=== PATIENT | male | born 1940 | race Caucasian/White ===

== ENCOUNTER 2017-08-13 09:54 | Inpatient (IN) | payer OTHER, MEDICAID ==
[2017-08-13] MEDS: SOD CHLORIDE 0.9% 500 ML IV (10:30)
[2017-08-13] MEDS: PANTOPRAZOLE IV 80 MG in SOD CHLORIDE 0.9% 100 ML IVPB (10:45)
[2017-08-13] MEDS: PANTOPRAZOLE IV 80 MG in SOD CHLORIDE 0.9% 100 ML IV (10:45)
[2017-08-13 10:57] LABS: ADD MAN DIFF? NO
[2017-08-13 11:00] LABS: BASOPHILS % 0.1 % (0.0-2.0); EOSINOPHILS % 0.1 % (0.0-7.0); HEMATOCRIT 41.1 % (42.0-52.0); LYMPHOCYTES # 1.4 10^3/ul (0.8-2.9); LYMPHOCYTES % 8.3 % (15.0-51.0); MEAN CORPUSCULAR HEMOGLOBIN 29.8 pg (29.0-33.0); MEAN CORPUSCULAR HGB CONC 34.1 g/dl (32.0-37.0); MEAN CORPUSCULAR VOLUME 87.4 fl (82.0-101.0); MEAN PLATELET VOLUME 9.6 fl (7.4-10.4); MONOCYTE # 0.7 10^3/ul (0.3-0.9); MONOCYTES % 3.8 % (0.0-11.0); NEUTROPHIL # 14.8 10^3/ul (1.6-7.5); NEUTROPHILS % 87.2 % (39.0-77.0); PLATELET COUNT 243 10^3/UL (140-415); RED CELL DISTRIBUTION WIDTH 13.1 % (11.5-14.5)
[2017-08-13 11:00] LABS: WHITE BLOOD COUNT 16.9 10^3/ul (4.8-10.8)
[2017-08-13 11:33] LABS: ALANINE AMINOTRANSFERASE 51 IU/L (13-69); ALBUMIN 4.3 g/dl (3.3-4.9); ALBUMIN/GLOBULIN RATIO 1.26; ALKALINE PHOSPHATASE 90 IU/L (42-121); ANION GAP 17 (8-16); ASPARTATE AMINO TRANSFERASE 24 IU/L (15-46); BILIRUBIN,INDIRECT 0.5 mg/dl (0-1.1); BILIRUBIN,TOTAL 0.5 mg/dl (0.2-1.3); BLOOD UREA NITROGEN 25 mg/dl (7-20); CALCIUM 9.8 mg/dl (8.4-10.2); CARBON DIOXIDE 30 mmol/L (21-31); CHLORIDE 105 mmol/L (97-110); CREATININE 0.72 mg/dl (0.61-1.24); GLUCOSE 171 mg/dl (70-220); INR 1.01; POTASSIUM 3.8 mmol/L (3.5-5.1); PROTIME 13.4 Sec (11.9-14.9); SODIUM 148 mmol/L (135-144); TOTAL PROTEIN 7.7 g/dl (6.1-8.1)
[2017-08-13] MEDS ORDERED: SOD CHLORIDE 0.9% 1,000 ML IV (13:29)
[2017-08-13] MEDS ORDERED: ACETAMINOPHEN 325 MG TAB PO (13:30)
[2017-08-13] MEDS ORDERED: ONDANSETRON 4 MG INJ IV ×3 (13:30→19:30)
[2017-08-13] MEDS ORDERED: NACL 0.9% 3 ML SYG IV (14:30)
[2017-08-13] MEDS ORDERED: morphine 2 MG INJ IV (14:30)
[2017-08-13] MEDS ORDERED: METOCLOPRAMIDE 10 MG INJ IV ×2 (14:30→19:30)
[2017-08-13] MEDS: SOD CHLORIDE 0.45% 1,000 ML IV ×2 (15:45→22:19)
[2017-08-13 17:54] LABS: HEMATOCRIT 38.1 % (42.0-52.0); HEMOGLOBIN 12.7 g/dl (14.0-18.0)
[2017-08-13] MEDS: PIPER-TAZO 3.375 GM IV (PMX) 100 ML IVPB ×2 (18:00→23:24)
[2017-08-13 19:11] LABS: ADD UMIC NO; UR ASCORBIC ACID NEGATIVE (NEGATIVE); UR BILIRUBIN (Dip) NEGATIVE (NEGATIVE); UR BLOOD (Dip) NEGATIVE (NEGATIVE); UR CLARITY CLEAR (CLEAR); UR COLOR YELLOW (YELLOW); UR GLUCOSE (Dip) NEGATIVE (NEGATIVE); UR KETONES (Dip) NEGATIVE (NEGATIVE); UR LEUKOCYTE ESTERASE (Dip) NEGATIVE Leu/ul (NEGATIVE); UR NITRITE (Dip) NEGATIVE (NEGATIVE); UR SPECIFIC GRAVITY (Dip) 1.051 (1.003-1.030); UR TOTAL PROTEIN (Dip) NEGATIVE (NEGATIVE); UR UROBILINOGEN (Dip) NEGATIVE (NEGATIVE)
[2017-08-13] MEDS ORDERED: DIPHENHYDRAMINE 50 MG INJ IV (19:30)
[2017-08-13] MEDS ORDERED: FENTAnyl 50 MCG/ML VIAL IV (19:30)
[2017-08-13] MEDS ORDERED: LABETALOL HCL 20MG INJ IV (19:30)
[2017-08-13] MEDS ORDERED: HYDROmorphONE 1 MG/5 ML IV SYRINGE IV (19:46)
[2017-08-13] MEDS: HYDROmorphONE 1 MG/5 ML IV SYRINGE IV (19:49)
[2017-08-13] MEDS: hydrALAzine 20 MG INJ IV (19:55)
[2017-08-13] MEDS: PANTOPRAZOLE 40 MG INJ IV (21:10)
[2017-08-14 05:37] LABS: ADD MAN DIFF? NO
[2017-08-14 05:45] LABS: BASOPHILS % 0.2 % (0.0-2.0); EOSINOPHILS # 0.1 10^3/ul (0.0-0.5); EOSINOPHILS % 1.1 % (0.0-7.0); HEMATOCRIT 37.7 % (42.0-52.0); HEMOGLOBIN 12.6 g/dl (14.0-18.0); LYMPHOCYTES % 14.9 % (15.0-51.0); MEAN CORPUSCULAR HEMOGLOBIN 29.7 pg (29.0-33.0); MEAN CORPUSCULAR HGB CONC 33.4 g/dl (32.0-37.0); MEAN CORPUSCULAR VOLUME 88.9 fl (82.0-101.0); MEAN PLATELET VOLUME 9.7 fl (7.4-10.4); MONOCYTES % 7.3 % (0.0-11.0); PLATELET COUNT 219 10^3/UL (140-415); RED BLOOD COUNT 4.24 10^6/ul (4.70-6.10); RED CELL DISTRIBUTION WIDTH 13.4 % (11.5-14.5)
[2017-08-14 05:45] LABS: WHITE BLOOD COUNT 13.2 10^3/ul (4.8-10.8)
[2017-08-14] MEDS: PIPER-TAZO 3.375 GM IV (PMX) 100 ML IVPB ×3 (05:56→18:45)
[2017-08-14] MEDS: PANTOPRAZOLE 40 MG INJ IV ×2 (05:56→18:44)
[2017-08-14] MEDS: SOD CHLORIDE 0.45% 1,000 ML IV ×3 (05:57→22:19)
[2017-08-14 06:07] LABS: ALANINE AMINOTRANSFERASE 37 IU/L (13-69); ALBUMIN 3.2 g/dl (3.3-4.9); ALBUMIN/GLOBULIN RATIO 1.14; ALKALINE PHOSPHATASE 63 IU/L (42-121); ANION GAP 12 (8-16); ASPARTATE AMINO TRANSFERASE 19 IU/L (15-46); BILIRUBIN,INDIRECT 0.5 mg/dl (0-1.1); BILIRUBIN,TOTAL 0.5 mg/dl (0.2-1.3); BLOOD UREA NITROGEN 24 mg/dl (7-20); CALCIUM 8.5 mg/dl (8.4-10.2); CARBON DIOXIDE 26 mmol/L (21-31); CHLORIDE 112 mmol/L (97-110); CHOL/HDL RATIO 4.1 RATIO; CHOLESTEROL 121 mg/dl (100-200); CREATININE 0.78 mg/dl (0.61-1.24); GLUCOSE 104 mg/dl (70-220); HDL CHOLESTEROL 29 mg/dl (31-75); LDL CHOLESTEROL,CALCULATED 70 mg/dl; MAGNESIUM 1.9 mg/dl (1.7-2.5); PHOSPHORUS 4.3 mg/dl (2.5-4.9); POTASSIUM 3.8 mmol/L (3.5-5.1); SODIUM 146 mmol/L (135-144); TRIGLYCERIDES 109 mg/dl (0-149)
[2017-08-14 07:08] LABS: HEMOGLOBIN A1C 5.9 % (0-5.9)
[2017-08-14] MEDS: BENAZEPRIL 20 MG TAB PO (08:35)
[2017-08-14] MEDS: INDOMETHACIN 50 MG SUPP PR (16:30)
[2017-08-14 18:53] LABS: CARCINOEMBRYONIC ANTIGEN 1.5 ng/ml (0.0-5.0)
[2017-08-14 18:57] LABS: CANCER ANTIGEN 19-9 5.4 U/ml (0.0-37.0)
[2017-08-14 22:54] LABS: LACTIC ACID 1.2 mmol/L (0.5-2.0)
[2017-08-14 23:19] LABS: OCCULT BLOOD STOOL POSITIVE (NEGATIVE)
[2017-08-14 23:42] LABS: HIV 1&2 ANTIBODY NEGATIVE (NEGATIVE)
[2017-08-15] MEDS: PIPER-TAZO 3.375 GM IV (PMX) 100 ML IVPB ×5 (00:54→23:51)
[2017-08-15] MEDS: SOD CHLORIDE 0.45% 1,000 ML IV ×4 (00:55→23:06)
[2017-08-15] MEDS: PANTOPRAZOLE 40 MG INJ IV ×2 (05:41→18:50)
[2017-08-15 05:42] LABS: ADD MAN DIFF? NO; BASOPHILS % 0.3 % (0.0-2.0); EOSINOPHILS # 0.3 10^3/ul (0.0-0.5); HEMATOCRIT 33.5 % (42.0-52.0); HEMOGLOBIN 11.2 g/dl (14.0-18.0); LYMPHOCYTES # 2.2 10^3/ul (0.8-2.9); MEAN CORPUSCULAR HEMOGLOBIN 29.9 pg (29.0-33.0); MEAN CORPUSCULAR HGB CONC 33.4 g/dl (32.0-37.0); MEAN CORPUSCULAR VOLUME 89.3 fl (82.0-101.0); MEAN PLATELET VOLUME 9.6 fl (7.4-10.4); MONOCYTE # 0.7 10^3/ul (0.3-0.9); MONOCYTES % 7.4 % (0.0-11.0); NEUTROPHIL # 5.9 10^3/ul (1.6-7.5); NEUTROPHILS % 65.1 % (39.0-77.0); PLATELET COUNT 188 10^3/UL (140-415); RED BLOOD COUNT 3.75 10^6/ul (4.70-6.10); RED CELL DISTRIBUTION WIDTH 13.3 % (11.5-14.5)
[2017-08-15 05:42] LABS: WHITE BLOOD COUNT 9.1 10^3/ul (4.8-10.8)
[2017-08-15 06:25] LABS: ANION GAP 11 (8-16); BLOOD UREA NITROGEN 16 mg/dl (7-20); CALCIUM 8.2 mg/dl (8.4-10.2); CARBON DIOXIDE 22 mmol/L (21-31); CHLORIDE 112 mmol/L (97-110); CREATININE 0.92 mg/dl (0.61-1.24); GLUCOSE 77 mg/dl (70-220); POTASSIUM 3.7 mmol/L (3.5-5.1); SODIUM 141 mmol/L (135-144)
[2017-08-15] MEDS ORDERED: DEXAMETHASONE 4 MG/ML 1 ML INJ (07:00)
[2017-08-15] MEDS ORDERED: CEFAZOLIN 1 GM INJ (07:00)
[2017-08-15] MEDS ORDERED: ONDANSETRON 4 MG INJ (07:00)
[2017-08-15] MEDS: BENAZEPRIL 20 MG TAB PO ×2 (08:51→11:58)
[2017-08-15] MEDS: INDOMETHACIN 50 MG SUPP PR (09:00)
[2017-08-15] MEDS ORDERED: PROPOFOL 20 ML (09:44)
[2017-08-15] MEDS ORDERED: FENTAnyl 50 MCG/ML VIAL (09:45)
[2017-08-15] MEDS ORDERED: MIDAZOLAM 1 MG/ML 2 ML INJ (09:47)
[2017-08-15] MEDS ORDERED: LIDOCAINE 2% (SDV) 5 ML INJ (10:15)
[2017-08-15] MEDS ORDERED: SUCCINYLCHOLINE CHLORIDE 100 MG/5 ML SYG IV (10:15)
[2017-08-15] MEDS: hydrALAzine 20 MG INJ IV (10:41)
[2017-08-16 05:58] LABS: ADD MAN DIFF? NO
[2017-08-16] MEDS: PANTOPRAZOLE 40 MG INJ IV ×2 (05:58→17:57)
[2017-08-16] MEDS: PIPER-TAZO 3.375 GM IV (PMX) 100 ML IVPB ×4 (05:58→23:53)
[2017-08-16 06:01] LABS: WHITE BLOOD COUNT 9.3 10^3/ul (4.8-10.8)
[2017-08-16 06:01] LABS: BASOPHILS % 0.1 % (0.0-2.0); EOSINOPHILS # 0.1 10^3/ul (0.0-0.5); EOSINOPHILS % 0.8 % (0.0-7.0); HEMATOCRIT 31.8 % (42.0-52.0); HEMOGLOBIN 10.8 g/dl (14.0-18.0); LYMPHOCYTES # 1.8 10^3/ul (0.8-2.9); LYMPHOCYTES % 19.6 % (15.0-51.0); MEAN CORPUSCULAR VOLUME 88.3 fl (82.0-101.0); MEAN PLATELET VOLUME 9.7 fl (7.4-10.4); MONOCYTE # 0.7 10^3/ul (0.3-0.9); MONOCYTES % 7.4 % (0.0-11.0); NEUTROPHIL # 6.7 10^3/ul (1.6-7.5); NEUTROPHILS % 71.7 % (39.0-77.0); PLATELET COUNT 202 10^3/UL (140-415); RED CELL DISTRIBUTION WIDTH 13.2 % (11.5-14.5)
[2017-08-16] MEDS: SOD CHLORIDE 0.45% 1,000 ML IV ×4 (06:19→23:53)
[2017-08-16 06:35] LABS: ANION GAP 5 (8-16); BLOOD UREA NITROGEN 13 mg/dl (7-20); CALCIUM 8.2 mg/dl (8.4-10.2); CARBON DIOXIDE 25 mmol/L (21-31); CHLORIDE 113 mmol/L (97-110); CREATININE 0.82 mg/dl (0.61-1.24); GLUCOSE 88 mg/dl (70-220); POTASSIUM 3.3 mmol/L (3.5-5.1); SODIUM 140 mmol/L (135-144)
[2017-08-16] MEDS ORDERED: ACETAMINOPHEN 1000 MG/100 ML IVPB (07:00)
[2017-08-16] MEDS: BENAZEPRIL 20 MG TAB PO ×2 (09:00→13:10)
[2017-08-16] MEDS ORDERED: ONDANSETRON 4 MG INJ (09:17)
[2017-08-16] MEDS ORDERED: ROCURONIUM 50 MG INJ (09:17)
[2017-08-16] MEDS ORDERED: PROPOFOL 20 ML ×2 (09:17→09:51)
[2017-08-16] MEDS ORDERED: FENTAnyl 50 MCG/ML VIAL (09:17)
[2017-08-16] MEDS ORDERED: METOCLOPRAMIDE 10 MG INJ (09:19)
[2017-08-16] MEDS ORDERED: ROPIVACAINE 0.5 % 30 ML VIAL (09:19)
[2017-08-16] MEDS ORDERED: EPHEDrine SULFATE 50 MG/5 ML SYG (09:28)
[2017-08-16] MEDS ORDERED: HYDROmorphONE 2 MG/ML SYG (09:47)
[2017-08-16] MEDS ORDERED: hydrALAzine 20 MG INJ (09:47)
[2017-08-16] MEDS: BUPIVACAINE 0.25% (MPF) 30 ML INJ (09:55)
[2017-08-16] MEDS: LIDOCAINE 1%/EPI 30 ML INJ (09:55)
[2017-08-16] MEDS ORDERED: DIPHENHYDRAMINE 50 MG INJ IV (10:00)
[2017-08-16] MEDS ORDERED: hydrALAzine 20 MG INJ IV (10:00)
[2017-08-16] MEDS ORDERED: HYDROmorphONE 1 MG/5 ML IV SYRINGE IV ×3 (10:00)
[2017-08-16] MEDS ORDERED: ONDANSETRON 4 MG INJ IV ×2 (10:00→11:00)
[2017-08-16] MEDS ORDERED: LABETALOL HCL 20MG INJ IV (10:00)
[2017-08-16] MEDS ORDERED: NEOSTIGMINE 3 MG/3 ML SYRINGE (10:15)
[2017-08-16] MEDS ORDERED: GLYCOPYRROLATE 0.4 MG INJ (10:15)
[2017-08-16] MEDS: MEPERIDINE 25 MG INJ IV (12:01)
[2017-08-16] MEDS: POTASSIUM CHLORIDE 100 ML IVPB ×2 (13:33→15:47)
[2017-08-16] MEDS: morphine 2 MG INJ IV (15:02)
[2017-08-16] MEDS: OXYCODONE/ACETAMINOPHEN (5/325) TAB PO ×2 (15:52→22:40)
[2017-08-17] MEDS: hydrALAzine 20 MG INJ IV ×3 (01:58→16:15)
[2017-08-17 05:36] LABS: ADD MAN DIFF? NO
[2017-08-17] MEDS: PIPER-TAZO 3.375 GM IV (PMX) 100 ML IVPB ×3 (05:39→18:05)
[2017-08-17] MEDS: PANTOPRAZOLE 40 MG INJ IV ×2 (05:39→18:05)
[2017-08-17] MEDS: OXYCODONE/ACETAMINOPHEN (5/325) TAB PO ×2 (05:39→18:07)
[2017-08-17 05:53] LABS: WHITE BLOOD COUNT 16.9 10^3/ul (4.8-10.8)
[2017-08-17 05:53] LABS: BASOPHILS % 0.1 % (0.0-2.0); EOSINOPHILS % 0.1 % (0.0-7.0); HEMATOCRIT 33.9 % (42.0-52.0); HEMOGLOBIN 11.9 g/dl (14.0-18.0); LYMPHOCYTES # 1.1 10^3/ul (0.8-2.9); LYMPHOCYTES % 6.7 % (15.0-51.0); MEAN CORPUSCULAR HEMOGLOBIN 30.4 pg (29.0-33.0); MEAN CORPUSCULAR HGB CONC 35.1 g/dl (32.0-37.0); MEAN CORPUSCULAR VOLUME 86.5 fl (82.0-101.0); MEAN PLATELET VOLUME 9.6 fl (7.4-10.4); MONOCYTE # 0.6 10^3/ul (0.3-0.9); MONOCYTES % 3.7 % (0.0-11.0); NEUTROPHIL # 15.1 10^3/ul (1.6-7.5); NEUTROPHILS % 88.9 % (39.0-77.0); PLATELET COUNT 210 10^3/UL (140-415); RED BLOOD COUNT 3.92 10^6/ul (4.70-6.10); RED CELL DISTRIBUTION WIDTH 13.4 % (11.5-14.5)
[2017-08-17 06:01] LABS: ANION GAP 7 (8-16); BLOOD UREA NITROGEN 8 mg/dl (7-20); CARBON DIOXIDE 26 mmol/L (21-31); CHLORIDE 106 mmol/L (97-110); CREATININE 0.71 mg/dl (0.61-1.24); GLUCOSE 122 mg/dl (70-220); POTASSIUM 3.5 mmol/L (3.5-5.1); SODIUM 135 mmol/L (135-144)
[2017-08-17] MEDS: BENAZEPRIL 20 MG TAB PO ×2 (10:05→18:32)
[2017-08-17] MEDS: SOD CHLORIDE 0.45% 1,000 ML IV (10:06)
[2017-08-17] MEDS: POTASSIUM CHLORIDE (SR) 20 MEQ TAB PO (10:06)
[2017-08-17 11:59] LABS: ALANINE AMINOTRANSFERASE 49 IU/L (13-69); ALBUMIN 3.3 g/dl (3.3-4.9); ALBUMIN/GLOBULIN RATIO 1.22; ALKALINE PHOSPHATASE 51 IU/L (42-121); ANION GAP 13 (8-16); ASPARTATE AMINO TRANSFERASE 36 IU/L (15-46); BILIRUBIN,INDIRECT 0.4 mg/dl (0-1.1); BILIRUBIN,TOTAL 0.4 mg/dl (0.2-1.3); BLOOD UREA NITROGEN 8 mg/dl (7-20); CALCIUM 8.2 mg/dl (8.4-10.2); CARBON DIOXIDE 23 mmol/L (21-31); CHLORIDE 101 mmol/L (97-110); CREATININE 0.72 mg/dl (0.61-1.24); GLUCOSE 127 mg/dl (70-220); POTASSIUM 3.6 mmol/L (3.5-5.1); SODIUM 133 mmol/L (135-144)
[2017-08-18] MEDS: PIPER-TAZO 3.375 GM IV (PMX) 100 ML IVPB ×4 (00:13→18:03)
[2017-08-18] MEDS: OXYCODONE/ACETAMINOPHEN (5/325) TAB PO ×2 (05:31→13:35)
[2017-08-18] MEDS: PANTOPRAZOLE 40 MG INJ IV ×2 (05:32→18:03)
[2017-08-18 06:18] LABS: ADD MAN DIFF? NO
[2017-08-18 06:27] LABS: BASOPHILS % 0.1 % (0.0-2.0); EOSINOPHILS % 0.1 % (0.0-7.0); HEMOGLOBIN 11.9 g/dl (14.0-18.0); MEAN CORPUSCULAR VOLUME 85.6 fl (82.0-101.0); MEAN PLATELET VOLUME 9.7 fl (7.4-10.4); MONOCYTES % 4.3 % (0.0-11.0); NEUTROPHIL # 18.9 10^3/ul (1.6-7.5); NEUTROPHILS % 85.7 % (39.0-77.0); PLATELET COUNT 219 10^3/UL (140-415); RED BLOOD COUNT 3.97 10^6/ul (4.70-6.10); RED CELL DISTRIBUTION WIDTH 13.2 % (11.5-14.5)
[2017-08-18 06:49] LABS: ALBUMIN 3.1 g/dl (3.3-4.9); ANION GAP 11 (8-16); BLOOD UREA NITROGEN 8 mg/dl (7-20); CALCIUM 8.3 mg/dl (8.4-10.2); CARBON DIOXIDE 23 mmol/L (21-31); CHLORIDE 105 mmol/L (97-110); CREATININE 0.74 mg/dl (0.61-1.24); GLUCOSE 112 mg/dl (70-220); MAGNESIUM 1.7 mg/dl (1.7-2.5); PHOSPHORUS 1.7 mg/dl (2.5-4.9); POTASSIUM 3.5 mmol/L (3.5-5.1); SODIUM 135 mmol/L (135-144)
[2017-08-18] MEDS: BENAZEPRIL 20 MG TAB PO (09:50)
[2017-08-18] MEDS: NEUTRA-PHOS 250 MG PACKET PO (10:23)
[2017-08-18] MEDS: hydrALAzine 20 MG INJ IV (14:36)
[2017-08-19] MEDS: OXYCODONE/ACETAMINOPHEN (5/325) TAB PO ×2 (00:29→08:58)
[2017-08-19] MEDS: PIPER-TAZO 3.375 GM IV (PMX) 100 ML IVPB ×3 (00:29→12:22)
[2017-08-19] MEDS: PANTOPRAZOLE 40 MG INJ IV ×2 (05:39→17:10)
[2017-08-19 06:04] LABS: ADD MAN DIFF? NO
[2017-08-19 06:05] LABS: WHITE BLOOD COUNT 24.4 10^3/ul (4.8-10.8)
[2017-08-19 06:05] LABS: BASOPHILS % 0.1 % (0.0-2.0); EOSINOPHILS # 0.2 10^3/ul (0.0-0.5); EOSINOPHILS % 0.8 % (0.0-7.0); HEMATOCRIT 34.4 % (42.0-52.0); HEMOGLOBIN 11.8 g/dl (14.0-18.0); LYMPHOCYTES # 2.9 10^3/ul (0.8-2.9); LYMPHOCYTES % 11.9 % (15.0-51.0); MEAN CORPUSCULAR HEMOGLOBIN 29.5 pg (29.0-33.0); MEAN CORPUSCULAR HGB CONC 34.3 g/dl (32.0-37.0); MEAN PLATELET VOLUME 9.3 fl (7.4-10.4); MONOCYTE # 1.2 10^3/ul (0.3-0.9); MONOCYTES % 5.1 % (0.0-11.0); NEUTROPHIL # 19.8 10^3/ul (1.6-7.5); NEUTROPHILS % 81.2 % (39.0-77.0); PLATELET COUNT 219 10^3/UL (140-415); RED CELL DISTRIBUTION WIDTH 13.3 % (11.5-14.5)
[2017-08-19 06:31] LABS: ALBUMIN 3.1 g/dl (3.3-4.9); ANION GAP 10 (8-16); BLOOD UREA NITROGEN 8 mg/dl (7-20); CALCIUM 8.4 mg/dl (8.4-10.2); CARBON DIOXIDE 26 mmol/L (21-31); CHLORIDE 103 mmol/L (97-110); CREATININE 0.75 mg/dl (0.61-1.24); GLUCOSE 113 mg/dl (70-220); MAGNESIUM 1.9 mg/dl (1.7-2.5); PHOSPHORUS 2.6 mg/dl (2.5-4.9); POTASSIUM 3.5 mmol/L (3.5-5.1); SODIUM 135 mmol/L (135-144)
[2017-08-19] MEDS: AMLODIPINE 5 MG TAB PO (08:54)
[2017-08-19] MEDS: BENAZEPRIL 20 MG TAB PO (08:55)
[2017-08-19] MEDS ORDERED: HYDROCODONE/APAP (5/325) TAB PO (11:00)
[2017-08-19] MEDS: POLYETHYLENE GLYCOL 17 GM PACKET PO (12:23)
[2017-08-19] MEDS: SENNA/DOCUSATE NA (8.6MG/50MG) TAB PO ×2 (12:23→21:00)
[2017-08-19] MEDS: POTASSIUM CHLORIDE (SR) 20 MEQ TAB PO (13:59)
[2017-08-19] MEDS: hydrALAzine 20 MG INJ IV (14:03)
[2017-08-19] MEDS ORDERED: VANCOMYCIN IV PER PHARMACY XX (15:30)
[2017-08-19] MEDS: MEROPENEM 1 GM/50ML(PMX) 50 ML IVPB (16:24)
[2017-08-19 16:51] LABS: LACTIC ACID 2.8 mmol/L (0.5-2.0)
[2017-08-19] MEDS: SOD CHLORIDE 0.9% 500 ML IV (17:10)
[2017-08-19] MEDS: ACETAMINOPHEN 325 MG TAB PO (17:10)
[2017-08-19 18:27] LABS: ADD UMIC YES; UR ASCORBIC ACID NEGATIVE (NEGATIVE); UR BILIRUBIN (Dip) NEGATIVE (NEGATIVE); UR BLOOD (Dip) 1+ mg/dL (NEGATIVE); UR CLARITY CLEAR (CLEAR); UR COLOR YELLOW (YELLOW); UR GLUCOSE (Dip) 1+ mg/dL (NEGATIVE); UR KETONES (Dip) NEGATIVE (NEGATIVE); UR LEUKOCYTE ESTERASE (Dip) NEGATIVE Leu/ul (NEGATIVE); UR NITRITE (Dip) NEGATIVE (NEGATIVE); UR RBC 1 /HPF (0-5); UR SPECIFIC GRAVITY (Dip) 1.014 (1.003-1.030); UR TOTAL PROTEIN (Dip) 1+ mg/dl (NEGATIVE); UR UROBILINOGEN (Dip) NEGATIVE (NEGATIVE); UR WBC 1 /HPF (0-5)
[2017-08-19] MEDS: VANCOMYCIN 1.25 GM in SOD CHLORIDE 0.9% 250 ML IVPB (18:55)
[2017-08-19 21:30] LABS: LACTIC ACID 1.6 mmol/L (0.5-2.0)
[2017-08-19] MEDS ORDERED: MEROPENEM 1 GM/50ML(PMX) 50 ML IVPB (22:00)
[2017-08-20] MEDS: ACETAMINOPHEN 325 MG TAB PO (00:18)
[2017-08-20 01:47] LABS: LACTIC ACID 0.8 mmol/L (0.5-2.0)
[2017-08-20] MEDS: hydrALAzine 20 MG INJ IV ×2 (02:02→15:52)
[2017-08-20] MEDS: PANTOPRAZOLE 40 MG INJ IV ×2 (05:42→18:39)
[2017-08-20 05:57] LABS: ADD MAN DIFF? NO
[2017-08-20 06:00] LABS: WHITE BLOOD COUNT 18.3 10^3/ul (4.8-10.8)
[2017-08-20 06:01] LABS: BASOPHILS % 0.2 % (0.0-2.0); EOSINOPHILS # 0.3 10^3/ul (0.0-0.5); EOSINOPHILS % 1.5 % (0.0-7.0); LYMPHOCYTES # 1.9 10^3/ul (0.8-2.9); LYMPHOCYTES % 10.1 % (15.0-51.0); MEAN CORPUSCULAR HEMOGLOBIN 29.6 pg (29.0-33.0); MEAN CORPUSCULAR HGB CONC 34.4 g/dl (32.0-37.0); MEAN PLATELET VOLUME 9.8 fl (7.4-10.4); MONOCYTE # 1.5 10^3/ul (0.3-0.9); MONOCYTES % 7.9 % (0.0-11.0); NEUTROPHIL # 14.5 10^3/ul (1.6-7.5); NEUTROPHILS % 79.6 % (39.0-77.0); PLATELET COUNT 260 10^3/UL (140-415); RED BLOOD COUNT 3.72 10^6/ul (4.70-6.10); RED CELL DISTRIBUTION WIDTH 13.5 % (11.5-14.5)
[2017-08-20 06:31] LABS: ANION GAP 11 (8-16); BLOOD UREA NITROGEN 6 mg/dl (7-20); CALCIUM 8.2 mg/dl (8.4-10.2); CARBON DIOXIDE 27 mmol/L (21-31); CHLORIDE 104 mmol/L (97-110); CREATININE 0.65 mg/dl (0.61-1.24); GLUCOSE 119 mg/dl (70-220); PHOSPHORUS 2.1 mg/dl (2.5-4.9); POTASSIUM 3.8 mmol/L (3.5-5.1); SODIUM 138 mmol/L (135-144)
[2017-08-20] MEDS: IOHEXOL 14.3 MG(I)/ML (ADULT) BTL PO ×2 (08:00→11:03)
[2017-08-20] MEDS: SENNA/DOCUSATE NA (8.6MG/50MG) TAB PO ×2 (09:00→21:00)
[2017-08-20] MEDS: POLYETHYLENE GLYCOL 17 GM PACKET PO (09:00)
[2017-08-20] MEDS: MEROPENEM 1 GM/50ML(PMX) 50 ML IVPB ×3 (09:56→23:03)
[2017-08-20] MEDS: AMLODIPINE 10 MG TAB PO (09:58)
[2017-08-20] MEDS: BENAZEPRIL 20 MG TAB PO (09:58)
[2017-08-20] MEDS: VANCOMYCIN 500MG/NS (PMX) 100 ML IVPB ×2 (11:03→21:10)
[2017-08-20] MEDS: SOD CHLORIDE 0.9% 100 ML ×2 (14:30→14:34)
[2017-08-20] MEDS: IOHEXOL 300MG/ML 150 ML BTL ×2 (14:32→14:34)
[2017-08-20] MEDS: morphine LIQ (10 MG/5 ML) CUP PO (15:52)
[2017-08-20] MEDS ORDERED: VANCOMYCIN 1 GM 250 ML IVPB (16:00)
[2017-08-20] MEDS: HYDROCODONE/APAP (10/325) TAB PO (21:11)
[2017-08-21] MEDS: PANTOPRAZOLE 40 MG INJ IV ×2 (05:38→17:45)
[2017-08-21] MEDS: MEROPENEM 1 GM/50ML(PMX) 50 ML IVPB ×3 (05:38→21:24)
[2017-08-21] MEDS: AMLODIPINE 10 MG TAB PO (09:07)
[2017-08-21] MEDS: SENNA/DOCUSATE NA (8.6MG/50MG) TAB PO ×2 (09:07→20:05)
[2017-08-21] MEDS: POLYETHYLENE GLYCOL 17 GM PACKET PO (09:07)
[2017-08-21] MEDS: BENAZEPRIL 20 MG TAB PO (09:07)
[2017-08-21 09:49] LABS: VANCOMYCIN,TROUGH 6.1 ug/ml (10.0-20.0)
[2017-08-21] MEDS: VANCOMYCIN 1 GM 250 ML IVPB ×2 (10:48→22:23)
[2017-08-21 11:38] LABS: ADD MAN DIFF? NO
[2017-08-21 11:49] LABS: WHITE BLOOD COUNT 17.9 10^3/ul (4.8-10.8)
[2017-08-21 11:49] LABS: BASOPHILS % 0.2 % (0.0-2.0); EOSINOPHILS # 0.3 10^3/ul (0.0-0.5); EOSINOPHILS % 1.7 % (0.0-7.0); HEMATOCRIT 34.2 % (42.0-52.0); HEMOGLOBIN 11.8 g/dl (14.0-18.0); LYMPHOCYTES # 1.6 10^3/ul (0.8-2.9); LYMPHOCYTES % 8.8 % (15.0-51.0); MEAN CORPUSCULAR HEMOGLOBIN 29.9 pg (29.0-33.0); MEAN CORPUSCULAR HGB CONC 34.5 g/dl (32.0-37.0); MEAN CORPUSCULAR VOLUME 86.6 fl (82.0-101.0); MONOCYTE # 1.1 10^3/ul (0.3-0.9); MONOCYTES % 5.9 % (0.0-11.0); NEUTROPHIL # 14.8 10^3/ul (1.6-7.5); NEUTROPHILS % 82.6 % (39.0-77.0); PLATELET COUNT 351 10^3/UL (140-415); RED BLOOD COUNT 3.95 10^6/ul (4.70-6.10); RED CELL DISTRIBUTION WIDTH 13.8 % (11.5-14.5)
[2017-08-21] MEDS: HYDROCODONE/APAP (10/325) TAB PO (20:05)
[2017-08-22] MEDS: PANTOPRAZOLE 40 MG INJ IV ×2 (05:47→18:24)
[2017-08-22] MEDS: MEROPENEM 1 GM/50ML(PMX) 50 ML IVPB ×3 (05:47→21:27)
[2017-08-22 06:05] LABS: ADD MAN DIFF? NO
[2017-08-22 06:08] LABS: WHITE BLOOD COUNT 15.3 10^3/ul (4.8-10.8)
[2017-08-22 06:08] LABS: BASOPHILS % 0.2 % (0.0-2.0); EOSINOPHILS # 0.3 10^3/ul (0.0-0.5); HEMATOCRIT 29.6 % (42.0-52.0); HEMOGLOBIN 10.2 g/dl (14.0-18.0); LYMPHOCYTES # 1.6 10^3/ul (0.8-2.9); LYMPHOCYTES % 10.3 % (15.0-51.0); MEAN CORPUSCULAR HEMOGLOBIN 29.5 pg (29.0-33.0); MEAN CORPUSCULAR HGB CONC 34.5 g/dl (32.0-37.0); MEAN CORPUSCULAR VOLUME 85.5 fl (82.0-101.0); MEAN PLATELET VOLUME 9.1 fl (7.4-10.4); MONOCYTE # 1.3 10^3/ul (0.3-0.9); MONOCYTES % 8.4 % (0.0-11.0); NEUTROPHIL # 11.9 10^3/ul (1.6-7.5); NEUTROPHILS % 77.9 % (39.0-77.0); PLATELET COUNT 305 10^3/UL (140-415); RED BLOOD COUNT 3.46 10^6/ul (4.70-6.10); RED CELL DISTRIBUTION WIDTH 14.1 % (11.5-14.5)
[2017-08-22 06:53] LABS: ALBUMIN 2.9 g/dl (3.3-4.9); ANION GAP 12 (8-16); BLOOD UREA NITROGEN 8 mg/dl (7-20); CALCIUM 7.9 mg/dl (8.4-10.2); CARBON DIOXIDE 27 mmol/L (21-31); CHLORIDE 101 mmol/L (97-110); CREATININE 0.63 mg/dl (0.61-1.24); GLUCOSE 132 mg/dl (70-220); PHOSPHORUS 2.6 mg/dl (2.5-4.9); POTASSIUM 3.8 mmol/L (3.5-5.1); SODIUM 136 mmol/L (135-144)
[2017-08-22 06:56] LABS: PROCALCITONIN <0.10 ng/mL (<0.10)
[2017-08-22] MEDS: AMLODIPINE 10 MG TAB PO (08:44)
[2017-08-22] MEDS: POLYETHYLENE GLYCOL 17 GM PACKET PO (08:45)
[2017-08-22] MEDS: BENAZEPRIL 20 MG TAB PO (08:45)
[2017-08-22] MEDS: SENNA/DOCUSATE NA (8.6MG/50MG) TAB PO ×2 (08:45→21:00)
[2017-08-22] MEDS: VANCOMYCIN 1 GM 250 ML IVPB (12:14)
[2017-08-22] MEDS: HYDROCODONE/APAP (10/325) TAB PO (19:07)
[2017-08-22] MEDS: LACTOBACILLUS RHAMNOSUS CAP PO (20:08)
[2017-08-22 22:39] LABS: VANCOMYCIN,TROUGH 9.9 ug/ml (10.0-20.0)
[2017-08-23] MEDS: VANCOMYCIN 1.25 GM in SOD CHLORIDE 0.9% 250 ML IVPB ×3 (01:24→17:50)
[2017-08-23] MEDS: PANTOPRAZOLE 40 MG INJ IV ×2 (05:20→18:38)
[2017-08-23] MEDS: MEROPENEM 1 GM/50ML(PMX) 50 ML IVPB ×4 (06:03→21:25)
[2017-08-23 06:09] LABS: ADD MAN DIFF? NO
[2017-08-23 06:27] LABS: WHITE BLOOD COUNT 16.5 10^3/ul (4.8-10.8)
[2017-08-23 06:27] LABS: BASOPHIL # 0.1 10^3/ul (0.0-0.1); BASOPHILS % 0.3 % (0.0-2.0); EOSINOPHILS # 0.3 10^3/ul (0.0-0.5); EOSINOPHILS % 1.7 % (0.0-7.0); HEMATOCRIT 30.7 % (42.0-52.0); HEMOGLOBIN 10.3 g/dl (14.0-18.0); LYMPHOCYTES # 1.8 10^3/ul (0.8-2.9); LYMPHOCYTES % 11.2 % (15.0-51.0); MEAN CORPUSCULAR HEMOGLOBIN 29.3 pg (29.0-33.0); MEAN CORPUSCULAR HGB CONC 33.6 g/dl (32.0-37.0); MEAN CORPUSCULAR VOLUME 87.2 fl (82.0-101.0); MEAN PLATELET VOLUME 8.7 fl (7.4-10.4); MONOCYTE # 1.2 10^3/ul (0.3-0.9); MONOCYTES % 7.2 % (0.0-11.0); NEUTROPHIL # 12.9 10^3/ul (1.6-7.5); NEUTROPHILS % 77.8 % (39.0-77.0); PLATELET COUNT 368 10^3/UL (140-415); RED BLOOD COUNT 3.52 10^6/ul (4.70-6.10); RED CELL DISTRIBUTION WIDTH 13.9 % (11.5-14.5)
[2017-08-23 07:01] LABS: ALBUMIN 2.9 g/dl (3.3-4.9); ANION GAP 10 (8-16); BLOOD UREA NITROGEN 9 mg/dl (7-20); CALCIUM 8.2 mg/dl (8.4-10.2); CARBON DIOXIDE 27 mmol/L (21-31); CHLORIDE 102 mmol/L (97-110); CREATININE 0.62 mg/dl (0.61-1.24); GLUCOSE 108 mg/dl (70-220); MAGNESIUM 2.1 mg/dl (1.7-2.5); PHOSPHORUS 2.9 mg/dl (2.5-4.9); POTASSIUM 4.1 mmol/L (3.5-5.1); SODIUM 135 mmol/L (135-144)
[2017-08-23] MEDS: BENAZEPRIL 20 MG TAB PO (08:35)
[2017-08-23] MEDS: SENNA/DOCUSATE NA (8.6MG/50MG) TAB PO ×2 (08:36→20:51)
[2017-08-23] MEDS: LACTOBACILLUS RHAMNOSUS CAP PO ×2 (08:36→20:33)
[2017-08-23] MEDS: POLYETHYLENE GLYCOL 17 GM PACKET PO (08:36)
[2017-08-23] MEDS: AMLODIPINE 10 MG TAB PO (08:36)
[2017-08-23 13:26] LABS: PROCALCITONIN 0.25 ng/mL (<0.10)
[2017-08-23] MEDS ORDERED: LIDOCAINE 1% (MPF) 5 ML VIAL SC (13:30)
[2017-08-23] MEDS: HEPARIN (10 UNITS/ML) 5ML SYG IV (20:34)
[2017-08-24] MEDS: hydrALAzine 20 MG INJ IV (02:10)
[2017-08-24] MEDS: VANCOMYCIN 1.25 GM in SOD CHLORIDE 0.9% 250 ML IVPB ×2 (05:15→18:13)
[2017-08-24] MEDS: PANTOPRAZOLE 40 MG INJ IV ×2 (05:15→18:13)
[2017-08-24] MEDS: MEROPENEM 1 GM/50ML(PMX) 50 ML IVPB ×3 (05:15→21:50)
[2017-08-24 05:37] LABS: ADD MAN DIFF? NO
[2017-08-24 05:42] LABS: WHITE BLOOD COUNT 15.5 10^3/ul (4.8-10.8)
[2017-08-24 05:42] LABS: BASOPHIL # 0.1 10^3/ul (0.0-0.1); BASOPHILS % 0.3 % (0.0-2.0); EOSINOPHILS # 0.2 10^3/ul (0.0-0.5); EOSINOPHILS % 1.2 % (0.0-7.0); HEMATOCRIT 32.3 % (42.0-52.0); LYMPHOCYTES # 1.9 10^3/ul (0.8-2.9); LYMPHOCYTES % 12.1 % (15.0-51.0); MEAN CORPUSCULAR HEMOGLOBIN 29.5 pg (29.0-33.0); MEAN CORPUSCULAR HGB CONC 34.1 g/dl (32.0-37.0); MEAN CORPUSCULAR VOLUME 86.6 fl (82.0-101.0); MEAN PLATELET VOLUME 8.2 fl (7.4-10.4); MONOCYTE # 0.9 10^3/ul (0.3-0.9); MONOCYTES % 5.9 % (0.0-11.0); NEUTROPHIL # 12.1 10^3/ul (1.6-7.5); NEUTROPHILS % 78.4 % (39.0-77.0); PLATELET COUNT 366 10^3/UL (140-415); RED BLOOD COUNT 3.73 10^6/ul (4.70-6.10); RED CELL DISTRIBUTION WIDTH 13.6 % (11.5-14.5)
[2017-08-24 06:10] LABS: ALBUMIN 3.1 g/dl (3.3-4.9); ANION GAP 12 (8-16); BLOOD UREA NITROGEN 9 mg/dl (7-20); CALCIUM 8.4 mg/dl (8.4-10.2); CARBON DIOXIDE 26 mmol/L (21-31); CHLORIDE 103 mmol/L (97-110); CREATININE 0.62 mg/dl (0.61-1.24); GLUCOSE 118 mg/dl (70-220); MAGNESIUM 2.2 mg/dl (1.7-2.5); POTASSIUM 4.1 mmol/L (3.5-5.1); SODIUM 137 mmol/L (135-144)
[2017-08-24 06:18] LABS: ALANINE AMINOTRANSFERASE 53 IU/L (13-69); ALBUMIN 3.2 g/dl (3.3-4.9); ALKALINE PHOSPHATASE 74 IU/L (42-121); ASPARTATE AMINO TRANSFERASE 37 IU/L (15-46); BILIRUBIN,INDIRECT 0.4 mg/dl (0-1.1); BILIRUBIN,TOTAL 0.4 mg/dl (0.2-1.3); TOTAL PROTEIN 6.2 g/dl (6.1-8.1)
[2017-08-24] MEDS: BENAZEPRIL 20 MG TAB PO (08:07)
[2017-08-24] MEDS: SENNA/DOCUSATE NA (8.6MG/50MG) TAB PO ×2 (08:08→20:57)
[2017-08-24] MEDS: LACTOBACILLUS RHAMNOSUS CAP PO ×2 (08:08→20:53)
[2017-08-24] MEDS: AMLODIPINE 10 MG TAB PO (08:08)
[2017-08-24] MEDS: POLYETHYLENE GLYCOL 17 GM PACKET PO (08:09)
[2017-08-25] MEDS: MEROPENEM 1 GM/50ML(PMX) 50 ML IVPB ×2 (05:32→13:02)
[2017-08-25] MEDS: PANTOPRAZOLE 40 MG INJ IV (05:33)
[2017-08-25 05:40] LABS: ADD MAN DIFF? NO
[2017-08-25 05:47] LABS: BASOPHIL # 0.1 10^3/ul (0.0-0.1); BASOPHILS % 0.3 % (0.0-2.0); EOSINOPHILS # 0.3 10^3/ul (0.0-0.5); EOSINOPHILS % 1.7 % (0.0-7.0); HEMATOCRIT 32.1 % (42.0-52.0); LYMPHOCYTES # 1.6 10^3/ul (0.8-2.9); LYMPHOCYTES % 10.7 % (15.0-51.0); MEAN CORPUSCULAR HEMOGLOBIN 29.6 pg (29.0-33.0); MEAN CORPUSCULAR HGB CONC 34.3 g/dl (32.0-37.0); MEAN CORPUSCULAR VOLUME 86.5 fl (82.0-101.0); MEAN PLATELET VOLUME 8.1 fl (7.4-10.4); MONOCYTE # 0.8 10^3/ul (0.3-0.9); MONOCYTES % 5.6 % (0.0-11.0); PLATELET COUNT 383 10^3/UL (140-415); RED BLOOD COUNT 3.71 10^6/ul (4.70-6.10); RED CELL DISTRIBUTION WIDTH 13.7 % (11.5-14.5)
[2017-08-25 06:18] LABS: VANCOMYCIN,TROUGH 13.1 ug/ml (10.0-20.0)
[2017-08-25] MEDS: POLYETHYLENE GLYCOL 17 GM PACKET PO (08:15)
[2017-08-25] MEDS: LACTOBACILLUS RHAMNOSUS CAP PO (08:15)
[2017-08-25] MEDS: BENAZEPRIL 20 MG TAB PO (08:16)
[2017-08-25] MEDS: AMLODIPINE 10 MG TAB PO (08:16)
[2017-08-25] MEDS: SENNA/DOCUSATE NA (8.6MG/50MG) TAB PO (08:16)
== END 2017-08-25 15:05 | disposition home health service (06) | DRG 853 ==
LOC: E/R 09:54 → MS2 13:30
PROC: 02HV33Z Insertion of Infusion Device into Superior Vena Cava, Percutaneous Approach (ICD-10-PCS; principal; 2017-08-13 18:00)
PROC: 0FT44ZZ Resection of Gallbladder, Percutaneous Endoscopic Approach (ICD-10-PCS; 2017-08-13 18:00)
PROC: 0DB38ZX Excision of Lower Esophagus, Via Natural or Artificial Opening Endoscopic, Diagnostic (ICD-10-PCS; 2017-08-13 18:00)
PROC: 0DB68ZX Excision of Stomach, Via Natural or Artificial Opening Endoscopic, Diagnostic (ICD-10-PCS; 2017-08-13 18:00)
PROC: 0FC98ZZ Extirpation of Matter from Common Bile Duct, Via Natural or Artificial Opening Endoscopic (ICD-10-PCS; 2017-08-13 18:00)
PROC: 0F798DZ Dilation of Common Bile Duct with Intraluminal Device, Via Natural or Artificial Opening Endoscopic (ICD-10-PCS; 2017-08-13 18:00)
DX: A41.9 Sepsis, unspecified organism (principal); K22.11 Ulcer of esophagus with bleeding; K80.42 Calculus of bile duct with acute cholecystitis without obstruction; E87.0 Hyperosmolality and hypernatremia; I10 Essential (primary) hypertension; M17.0 Bilateral primary osteoarthritis of knee; I16.0 Hypertensive urgency; E86.0 Dehydration; K29.70 Gastritis, unspecified, without bleeding; K52.9 Noninfective gastroenteritis and colitis, unspecified; K59.00 Constipation, unspecified; Z85.46 Personal history of malignant neoplasm of prostate; Z87.11 Personal history of peptic ulcer disease
CPT/HCPCS: 36415; 36569; 71045; 74177; 74181; 74330; 76937; 78226; 80048; 80053; 80061; 80069; 80076; 80202; 81001; 81003; 82270; 82378; 83036; 83605; 83735; 84100; 84145; 84443; 85014; 85018; 85025; 85610; 85730; 86301; 86703; 86850; 86900; 86901; 87040; 87070; 87086; 88304; 88305; 88312; 88313; 93306; 96374; 99285-25